=== PATIENT | female | born 1960 | race Caucasian/White ===

== ENCOUNTER 2017-10-26 13:47 | Emergency (ER) | payer BC, OTHER ==
[2017-10-26 13:52] VITALS: BP 142/69; BMI 32.1
[2017-10-26] MEDS ORDERED: TORADOL 60 MG VIAL ONE (13:58)
[2017-10-26] MEDS ORDERED: TORADOL 60 MG VIAL IM ONE (14:07)
--- NOTE | 2017-10-26 14:28 | DR.EXTPAIN ---
HPI - Time seen Time seen: 15:00 - PCP Primary Care Physician: MYA MYERS - Complaint/Symptoms Chief Complaint Doctor Comments: Patient states that she was leaving a furniture store on yesterday; there was a step off that she did not see; twisted her left ankle and heard a "pop". Chief Complaint:: TWISTED LEFT ANKLE Self Treatment fo Chief Complaint: PUT ON A BOOT - Source History Provided: Patient - Mode of arrival Mode of Arrival: Ambulatory - Timing Onset of Chief Complaint: 10/26/17 PMH - PMH Past Medical History: Yes Past Medical History: Hypertension Past Surgical History: Yes Past Surgical History Comment: LASIKS, CATARACT OU - Family History History of Family Medical Conditions: Yes Family Medical History: Diabetes Mellitus, Cancer, [place], Hypertension - Social History Does any household member use tobacco: No Alcohol Use: None Do you use any recreational Drugs:: No Lives With: Spouse Lives Where: Home - infectious screening In the last 2 months have you had wt loss of >10#?: NO Have you had fever, night sweats or hemotysis?: No Have you traveled outside the country in the last 6 months?: No Isolation: Standard ROS - Review of Systems Eyes: No Symptoms Reported ENTM: No Symptoms Reported Respiratoy: No Symptoms Reported Cardiovascular: No Symptoms Reported Gastrointestinal/Abdominal: No Symptoms Reported Genitourinary: No Symptoms Reported Neurological: No Symptoms Reported Musculoskeletal: No Symptoms Reported Integumentary: No Symptoms Reported Hematologic/Lymphatic: No Symptoms Reported Endocrine: No Symptoms Reported Psychiatric: No Symptoms Reported All Other Systems: Reviewed and Negative PE - Vital Signs Vitals: Temperature 98.3 F Pulse Rate 86 Respiratory Rate 20 Blood Pressure 142/69 O2 Sat by Pulse Oximetry 97 - General Limitations: No Limitations General Appearance: Alert, In No Apparent Distress - Head Head Exam: Normal Inspection, Atraumatic - Eyes Eye exam: Normal Appearance, PERRL, EOMI - ENT ENT Exam: Normal Exam - Neck Neck Exam: Normal Inspection, Full ROM - Chest Chest Inspection: Normal Inspection - Respiratory Respiratory Exam: Normal Lung Sounds Bilat, Accessory Muscle Use Respiratory Exam: Bilateral Clear to Auscultation - Cardiovascular Cardiovascular Exam: Regular Rate, Normal Rhythm - Abdominal Exam Abdominal Exam: Normal Inspection, Normal Bowel Sounds Abdominal Tenderness: negative: RUQ, RLQ, LUQ, LLQ, Epigastrium, Suprapubic, Diffuse, Mild, Moderate, Severe, Other - Extremities Extremities Exam: Normal Inspection, Full ROM - Upper Extremities Shoulder Exam: Normal Inspection Arm Exam: Normal Inspection Elbow Exam: Normal Inspection Forearm Exam: Normal Inspection, Full ROM Hand Exam: Normal Inspection Neuromotor Exam: Normal Exam Neurosensory Exam: Normal Exam Hand Tendon Exam: Flexor Digitorium Profundus (Location) - Lower Extremities Hip/Pelvis Exam: Normal Inspection Upper Leg Exam: Normal Inspection Knee Exam: Normal Inspection Lower Leg Exam: Normal Inspection Ankle Exam: Tenderness (left ankle) Foot/Toe Exam: Normal Inspection Neurovascular/Tendon Exam: Normal Capillary Refill Gait Exam: Observed & Limited by Pain - Back Back Exam: Normal Inspection - Neurological Neurological Exam: Alert, Oriented X3, CN II-XII Intact - Psychiatric Psychiatric Exam: Normal Affect, Normal Mood - Skin Skin Exam: Warm, Dry, Intact Distribution: Generalized - Discharge Plan Condition: Stable - Follow ups/Referrals Follow ups/Referrals: AMOS MYERS [Primary Care Provider] - 3 days - Instructions
--- NOTE | 2017-10-26 15:14 | RAD ---
HISTORY: Twisted left ankle Study: Three views left ankle Comparison: None Findings: There is a transverse nondisplaced fracture of the lateral malleolus below the level of the syndesmos is. The ankle mortise appears intact. There is prominent soft tissue swelling overlying the fracture. The talar dome appears intact. IMPRESSION: 1. Transverse nondisplaced fracture of the lateral malleolus. Reported By:
--- NOTE | 2017-10-26 16:00 | DR.EXTPAIN ---
HPI - Time seen Time seen: 15:00 - PCP Primary Care Physician: MYA MYERS - Complaint/Symptoms Chief Complaint Doctor Comments: Patient states that she twisted her left ankle when leaving the store; there was a step-off and she did not see it. She states that she heard a "pop". Chief Complaint:: TWISTED LEFT ANKLE Self Treatment fo Chief Complaint: PUT ON A BOOT - Source History Provided: Patient - Mode of arrival Mode of Arrival: Ambulatory - Timing Onset of Chief Complaint: 10/26/17 PMH - PMH Past Medical History: Yes Past Medical History: Hypertension Past Surgical History: Yes Past Surgical History Comment: LASIKS, CATARACT OU - Family History History of Family Medical Conditions: Yes Family Medical History: Diabetes Mellitus, Cancer, [place], Hypertension - Social History Does any household member use tobacco: No Alcohol Use: None Do you use any recreational Drugs:: No Lives With: Spouse Lives Where: Home - infectious screening In the last 2 months have you had wt loss of >10#?: NO Have you had fever, night sweats or hemotysis?: No Have you traveled outside the country in the last 6 months?: No Isolation: Standard ROS - Review of Systems Constitutional: Diaphoresis ENTM: No Symptoms Reported Respiratoy: No Symptoms Reported Cardiovascular: No Symptoms Reported Gastrointestinal/Abdominal: No Symptoms Reported Genitourinary: No Symptoms Reported Neurological: No Symptoms Reported Musculoskeletal: Ankle (left ankle pain) Integumentary: No Symptoms Reported Hematologic/Lymphatic: No Symptoms Reported Endocrine: No Symptoms Reported Psychiatric: No Symptoms Reported All Other Systems: Reviewed and Negative PE - Vital Signs Vitals: Temperature 98.3 F Pulse Rate 86 Respiratory Rate 20 Blood Pressure 142/69 O2 Sat by Pulse Oximetry 97 - General General Appearance: Alert, In No Apparent Distress - Head Head Exam: Normal Inspection, Atraumatic - Eyes Eye exam: Normal Appearance, PERRL, EOMI - ENT ENT Exam: Normal Exam, Normal Oropharynx - Neck Neck Exam: Normal Inspection - Chest Chest Inspection: Normal Inspection - Respiratory Respiratory Exam: Normal Lung Sounds Bilat Respiratory Exam: Bilateral Clear to Auscultation - Cardiovascular Cardiovascular Exam: Regular Rate, Normal Rhythm - Abdominal Exam Abdominal Exam: Normal Inspection, Normal Bowel Sounds Abdominal Tenderness: negative: RUQ, RLQ, LUQ, LLQ, Epigastrium, Suprapubic, Diffuse, Mild, Moderate, Severe, Other - Extremities Extremities Exam: Normal Inspection, Full ROM - Upper Extremities Shoulder Exam: Normal Inspection, Full ROM Arm Exam: Normal Inspection, Full ROM Elbow Exam: Normal Inspection Forearm Exam: Normal Inspection Hand Exam: Normal Inspection Neuromotor Exam: Normal Exam Neurosensory Exam: Normal Exam Hand Tendon Exam: Flexor Digitorium Profundus (Location) Upper Ext. Vascular Exam: Capillary Refill - Lower Extremities Hip/Pelvis Exam: Tenderness (left ankle) Upper Leg Exam: Normal Inspection Knee Exam: Normal Inspection Lower Leg Exam: Normal Inspection Ankle Exam: Tenderness (lateral malleolus of left ankle) Foot/Toe Exam: Normal Inspection Neurovascular/Tendon Exam: Normal Capillary Refill Gait Exam: Observed and Normal - Back Back Exam: Normal Inspection - Neurological Neurological Exam: Alert, Oriented X3, CN II-XII Intact - Psychiatric Psychiatric Exam: Normal Affect - Skin Skin Exam: Warm, Dry Type of Lesion: Rash Course - Treatment Treatment: Patient has boot - Education/Counseling Educated On: Treatment, Diagnosis, Needs for Follow Up ROR - XRAY XRAY Interpreted by: Radiologist (X Ray Left ankle: A transverse nondisplaced fracture of the lateral malleolus.) - Diagnosis Discharge Problem: non displaced transverse ankle fract - Discharge Plan Condition: Stable - Follow ups/Referrals Follow ups/Referrals: AMOS MYERS [Primary Care Provider] - 3 days - Instructions
== END 2017-10-26 16:16 | disposition home or self-care (01) ==
LOC: ER 13:47
DX: S82.65XA Nondisplaced fracture of lateral malleolus of left fibula, initial encounter for closed fracture (principal); Y33.XXXA Other specified events, undetermined intent, initial encounter; Y92.512 Supermarket, store or market as the place of occurrence of the external cause
CPT/HCPCS: 73610; 96372; 99282; J1885

== ENCOUNTER → 2017-11-21 | Outpatient (CLI) | payer BC, OTHER ==
[2017-10-26 13:52] VITALS: BP 142/69
--- NOTE | 2017-11-26 17:31 | MG ---
HISTORY: SCREENING Comparison: Multiple priors dating back to July 25, 2009 FINDINGS: Bilateral CC and MLO projections of the right and left breast were obtained. Scattered fibroglandula r tissue is seen to be present without suspicious interval change. No significant architectural dist ortion, mass or clustered microcalcifications can be observed to suggest malignancy. No skin thicken ing or nipple retraction is appreciated. No pathological lymphadenopathy can be identified. IMPRESSION: NO RADIOGRAPHIC EVIDENCE OF MALIGNANCY. ACR CATEGORY I - NEGATIVE EXAM. FOLLOW-UP EXAM 1 YEAR. Diagnostic CAD was utilized and reviewed. * 0 (ZERO) - ASSESSMENT INCOMPLETE; ADDITIONAL IMAGING IS NEEDED. * / (ONE) - NEGATIVE. * 2/II (TWO) - BENIGN FINDINGS. * 3/III (THREE) - PROBABLY BENIGN FINDING; SHORT INTERVAL FOLLOW-UP SUGGESTED. * 4/IV (FOUR) - SUSPICIOUS ABNORMALITY; BIOPSY SHOULD BE CONSIDERED. * 5/V - HIGHLY SUSPICIOUS OF MALIGNANCY; BIOPSY SHOULD BE PERFORMED. A NEGATIVE X-RAY REPORT SHOULD NOT DELAY BIOPSY IF A DOMINANT OR CLINICALLY SUSPICIOUS MASS IS PRESENT; 4 TO 8 PERCENT OF CANCERS ARE NOT IDENTIFIED BY X-RAY. A NEGA TIVE REPORT MAY REINFORCE THE CLINICAL IMPRESSION. ADENOSIS AND DENSE BREASTS MAY OBSCURE AN UNDERLY ING NEOPLASM. Reported By:
== END ==
LOC: RAD 13:23
PROVIDERS: ATTEND Obstetrics & Gynecology
DX: Z12.31 Encounter for screening mammogram for malignant neoplasm of breast (principal)
CPT/HCPCS: 77067

== ENCOUNTER 2018-11-18 08:58 | Inpatient (IN) ==
[2018-11-18 09:11] VITALS: BMI 36.6
[2018-11-18 10:22] LABS: BASOPHILS # (AUTO) 0.1 X10^3/uL (0.0-0.1); BASOPHILS % (AUTO) 0.8 % (0.2-1.0); EOSINOPHILS # (AUTO) 0.1 x10^3/uL (0.0-0.2); EOSINOPHILS % (AUTO) 1.1 % (0.9-2.9); HEMATOCRIT 42.7 % (36.0-47.0); HEMOGLOBIN 14.1 g/dL (12.0-16.0); LYMPHOCYTES # (AUTO) 1.7 X10^3/uL (1.3-2.9); LYMPHOCYTES % (AUTO) 21.1 % (21.0-51.0); MEAN CORPUSCULAR HEMOGLOBIN 30.5 pg (27.0-34.0); MEAN CORPUSCULAR HGB CONC 33.1 g/dL (33.0-35.0); MEAN CORPUSCULAR VOLUME 91.9 fL (80.0-100.0); MEAN PLATELET VOLUME 9.3 fL (7.4-11.0); MONOCYTES % (AUTO) 12.6 % (0.0-13.0); NEUTROPHILS # (AUTO) 5.3 x10^3/uL (2.2-4.8); NEUTROPHILS % (AUTO) 64.4 % (42.0-75.0); PLATELET COUNT 350 X10^3/uL (150.0-450.0); RED BLOOD COUNT 4.64 X10^6/uL (3.5-5.4); RED CELL DISTRIBUTION WIDTH 15.7 % (11.6-16.5); WHITE BLOOD COUNT 8.2 X10^3/uL (3.6-10.0)
[2018-11-18 10:35] LABS: BLOOD UREA NITROGEN 12 mg/dL (7-18); CALCIUM 9.2 mg/dL (8.5-10.1); CARBON DIOXIDE 35.5 mmol/L (21-32); CHLORIDE 105 mmol/L (98-107); CREATININE 0.56 mg/dL (0.55-1.02); SODIUM 145 mmol/L (136-145); TROPONIN I 0.03 ng/mL (0-1.5); eGFR NON BLACK RACES > 60 (>60)
--- NOTE | 2018-11-18 10:36 | DR.SOBA ---
HPI Time Seen Time Seen by Provider: 11/18/18 10:10 Primary Care Physician Primary Care Physician: lala carney HPI Comment HPI Comment: PATIENT HAVE COUGH, SOB AND CHEST PAIN FOR 2 WEEKS. DEVELOP COLD AND IS NOT GETTING BETTER. DENIES FEVER. PATIENT SAID IT FEEL LIKE HER LUNGS ARE CLOSE UP Complaints Chief Complaint Doctors Comments: INCREASING SOB TIMES 2 WEEKS. Chief Complaint:: patient stated she has been short of breath for 2 weeks and keeps getting worse. she has a history of blood clots in her lungs Source History Provided: Patient Mode of Arrival Mode of Arrival: Ambulatory Timing Onset of Chief Complaint: 11/04/18 Context Onset:: With Light Exertion PE Risk Factors:: None History of:: None Currently on:: Neither Prehospital Care:: None Modifying Factors Worsens:: Exertion Improves:: Rest Associated Signs and Symptoms Associated Signs and Symptoms: None If Cough Cough: None PMH PMH Past Medical History: Yes Past Medical History: Hypertension Past Surgical History: Yes Past Surgical History Comment: eye Family History History of Family Medical Conditions: Yes Family Medical History: Diabetes Mellitus, Cancer, [place] and Hypertension Social History Does patient currently use any type of tobacco product: No Have you used tobacco products in the last 12 months: No Type of Tobacco Use: None Does any household member use tobacco: No Alcohol Use: None Do you use any recreational Drugs:: No Lives With: Family Lives Where: Home infectious screening In the last 2 months have you had wt loss of >10#?: NO Have you had fever, night sweats or hemotysis?: No Have you traveled outside the country in the last 6 months?: No Isolation: Standard ROS Review of Systems Constitutional: No Symptoms Reported Eyes: No Symptoms Reported ENTM: No Symptoms Reported Respiratoy: Short of Breath Cardiovascular: No Symptoms Reported Gastrointestinal/Abdominal: No Symptoms Reported Genitourinary: No Symptoms Reported Neurological: No Symptoms Reported Musculoskeletal: No Symptoms Reported Integumentary: No Symptoms Reported Hematologic/Lymphatic: No Symptoms Reported Endocrine: No Symptoms Reported Psychiatric: No Symptoms Reported All Other Systems: Reviewed and Negative PE Vital Signs Vitals: Temperature 98.3 F Pulse Rate [Left] 108 Pulse Rate 81 Respiratory Rate 20 Blood Pressure [Right Arm] 118/74 Blood Pressure [Left Arm] 130/60 Blood Pressure 138/95 O2 Sat by Pulse Oximetry 97 General Limitations: No Limitations General Appearance: Alert and In Distress Head Head Exam: Normal Inspection Eyes Eye exam: Normal Appearance ENT ENT Exam: Normal Exam Neck Neck Exam: Normal Inspection Chest Chest Inspection: Normal Inspection Respiratory Respiratory Exam: Normal Lung Sounds Bilat Respiratory Exam: Bilateral: Clear to Auscultation Cardiovascular Cardiovascular Exam: Regular Rate and Normal Rhythm Abdominal Exam Abdominal Exam: Normal Inspection, Normal Bowel Sounds and Soft Extremities Extremities Exam: Normal Inspection Back Back Exam: Normal Inspection Neurologic Neurological Exam: Alert and Oriented X3 Psychiatric Psychiatric Exam: Normal Affect and Normal Mood Skin Skin Exam: Warm, Dry, Intact and Normal Color MDM Differential Diagnosis Differential Diagnosis: Bronchitis, Mycardial Infarction, Pneumonia, Pneumothorax and Pulmonary embolism COURSE Treatment Treatment: SEE ORDERS. Education/Counseling Education/Counseling: Patient Educated On: Diagnosis ROR Labs Reviewed Laboratory Results Reviewed?: Yes Result Diagrams: 11/21/18 05:35 11/21/18 05:35 Laboratory: 11/18/18 15:27 Blood Blood Culture - Final 11/18/18 15:20 Blood Blood Culture - Final 11/18/18 15:47 Sputum - Expectorated Sputum Sputum Culture - Final Pseudomonas Aeruginosa 11/18/18 15:47 Sputum - Expectorated Sputum - Final WBC 19.5 X10^3/uL (3.6-10.0) H 11/21/18 05:35 RBC 4.27 X10^6/uL (3.5-5.4) 11/21/18 05:35 Hgb 13.0 g/dL (12.0-16.0) 11/21/18 05:35 Hct 39.5 % (36.0-47.0) 11/21/18 05:35 MCV 92.6 fL (80.0-100.0) 11/21/18 05:35 MCH 30.5 pg (27.0-34.0) 11/21/18 05:35 MCHC 33.0 g/dL (33.0-35.0) 11/21/18 05:35 RDW 16.3 % (11.6-16.5) 11/21/18 05:35 Plt Count 361 X10^3/uL (150.0-450.0) 11/21/18 05:35 Plt Count Comment Adequate (ADEQUATE) 11/20/18 04:47 MPV 9.3 fL (7.4-11.0) 11/21/18 05:35 Neut % (Auto) 85.6 % (42.0-75.0) H 11/21/18 05:35 Lymph % (Auto) 8.3 % (21.0-51.0) L 11/21/18 05:35 Addison % (Auto) 5.9 % (0.0-13.0) 11/21/18 05:35 Eos % (Auto) 0.0 % (0.9-2.9) L 11/21/18 05:35 Baso % (Auto) 0.2 % (0.2-1.0) 11/21/18 05:35 Neut # (Auto) 16.7 x10^3/uL (2.2-4.8) H 11/21/18 05:35 Lymph # (Auto) 1.6 X10^3/uL (1.3-2.9) 11/21/18 05:35 Addison # (Auto) 1.2 x10^3/uL (0.3-0.8) H 11/21/18 05:35 Eos # (Auto) 0.0 x10^3/uL (0.0-0.2) 11/21/18 05:35 Baso # (Auto) 0.0 X10^3/uL (0.0-0.1) 11/21/18 05:35 Absolute Nucleated RBC 0.0 /100WBC 11/21/18 05:35 Total Counted 100 11/20/18 04:47 Neutrophils % (Manual) 95 % (39-76) H 11/20/18 04:47 Lymphocytes % (Manual) 4 % (13-43) L 11/20/18 04:47 Monocytes % (Manual) 1 % (4-9) L 11/20/18 04:47 Plt Morphology Comment Normal (NORMAL) 11/20/18 04:47 RBC Morphology Normal (NORMAL) 11/20/18 04:47 D-Dimer < 100 ng/mL (0-400) 11/18/18 09:28 Sample Site Rb 11/20/18 05:38 ABG pH 7.480 (7.35-7.45) H 11/20/18 05:38 ABG pCO2 38.0 mmHg (35.0-45.0) 11/20/18 05:38 ABG pO2 69.0 mmHg (80.0-100.0) L 11/20/18 05:38 ABG HCO3 28.3 mmol/L (22-26) H 11/20/18 05:38 ABG O2 Saturation 95.0 % (90-100) 11/20/18 05:38 ABG Base Excess 4.6 mmol/L (-2.0-2.0) H 11/20/18 05:38 Chaz Test Na 11/20/18 05:38 A-a Gradient 33.0 mmHg 11/20/18 05:38 FiO2 21.0 11/20/18 05:38 Blood Gas Comments Nita abg well-mtf 11/20/18 05:38 Sodium 144 mmol/L (136-145) 11/21/18 05:35 Corrected Sodium TNP 11/21/18 05:35 Potassium 3.8 mmol/L (3.5-5.1) 11/21/18 05:35 Chloride 106 mmol/L (98-107) 11/21/18 05:35 Carbon Dioxide 28.2 mmol/L (21-32) 11/21/18 05:35 BUN 14 mg/dL (7-18) 11/21/18 05:35 Creatinine 0.62 mg/dL (0.55-1.02) 11/21/18 05:35 Est GFR (MDRD) Af Amer > 60 (>60) 11/21/18 05:35 Est GFR (MDRD) Non-Af > 60 (>60) 11/21/18 05:35 Glucose 109 mg/dL (65-99) H 11/21/18 05:35 Calcium 8.8 mg/dL (8.5-10.1) 11/21/18 05:35 Corrected Calcium 9.4 mg/dL (8.5-10.1) 11/21/18 05:35 Magnesium 1.8 mg/dL (1.7-2.9) 11/20/18 04:47 Total Bilirubin 0.20 mg/dL (0.2-1.0) 11/21/18 05:35 AST 23 Units/L (15-37) 11/21/18 05:35 ALT 37 Units/L (12-78) 11/21/18 05:35 Alkaline Phosphatase 83 Units/L (46-116) 11/21/18 05:35 Creatine Kinase 64 Units/L (26-192) 11/19/18 04:28 CK-MB (CK-2) 1.4 ng/mL (0-4.0) 11/19/18 04:28 CK/CKMB % Calc 2.2 % (<4) 11/19/18 04:28 Troponin I 0.03 ng/mL (0-1.5) 11/19/18 04:28 Total Protein 6.6 g/dL (6.4-8.2) 11/21/18 05:35 Albumin 3.2 g/dL (3.4-5.0) L 11/21/18 05:35 Globulin 3.4 g/dL (2.5-4.5) 11/21/18 05:35 Albumin/Globulin Ratio 0.9 Ratio (1.1-2.1) L 11/21/18 05:35 Specimen Type Clean catch urine 11/18/18 14:42 Urine Color Yellow (YELLOW) 11/18/18 14:42 Urine Appearance Slightly hazy (CLEAR) 11/18/18 14:42 Urine pH 8.0 (5.0 - 8.0) 11/18/18 14:42 Ur Specific [place] 1.015 (1.000-1.030) 11/18/18 14:42 Urine Protein Negative (NEGATIVE) 11/18/18 14:42 Urine Glucose (UA) Negative (NEGATIVE) 11/18/18 14:42 Urine Ketones Negative (NEGATIVE) 11/18/18 14:42 Urine Occult Blood Negative (NEGATIVE) 11/18/18 14:42 Urine Nitrite Negative (NEGATIVE) 11/18/18 14:42 Urine Bilirubin Negative (NEGATIVE) 11/18/18 14:42 Urine Urobilinogen Normal (NORMAL) 11/18/18 14:42 Ur Leukocyte Esterase 1+ (NEGATIVE) 11/18/18 14:42 Urine RBC 0-2 /HPF (NONE SEEN) 11/18/18 14:42 Urine WBC 3-5 /HPF (NONE SEEN) 11/18/18 14:42 Ur Squamous Epith Cells Few /HPF (NEGATIVE) 11/18/18 14:42 Ur Renal Epithelial Cell Rare /HPF (NEGATIVE) 11/18/18 14:42 Urine Bacteria Trace /HPF (NEGATIVE) 11/18/18 14:42 Ur Culture Indicated? No/not indicated 11/18/18 14:42 XRAY XRAY Interpreted by: Radiologist XRAY Findings: REPORT DISCUSS WITH PATIENT. Instructions Instructions: Shortness of Breath, Adult, [id number] Cough, Adult, [id number] Pursed Lip Breathing Deep Vein Thrombosis Hypertension Community-Acquired Pneumonia, Adult, [id number] Forms: Excuse From Work Patient Portal
[2018-11-18 10:40] LABS: ALANINE AMINOTRANSFERASE 44 Units/L (12-78); ALBUMIN 3.7 g/dL (3.4-5.0); ALKALINE PHOSPHATASE 104 Units/L (46-116); ASPARTATE AMINO TRANSFERASE 31 Units/L (15-37); CREATINE KINASE 112 Units/L (26-192); CREATINE KINASE MB 2.2 ng/mL (0-4.0); TOTAL PROTEIN 7.6 g/dL (6.4-8.2)
[2018-11-18] MEDS ORDERED: K-LYTE EFFERVESCENT ONE (11:22)
[2018-11-18 11:25] LABS: ABG BASE EXCESS 9.8 mmol/L (-2.0-2.0)
[2018-11-18 11:26] LABS: ABG ALLEN TEST P; ABG HCO3 35.4 mmol/L (22-26)
--- NOTE | 2018-11-18 12:02 | RAD ---
HISTORY: Short of breath for 2 weeks and getting worse history of blood clots in her lungs. Study: Two-view chest Comparison: Two-view chest 06/23/2018 Technique: PA and lateral chest Findings: There is moderate scoliosis concave to the left in the upper thoracic spine. No acute osseous lesions are observed. The heart size and configuration airway and vascularity are normal the lungs are clear. When compared to the prior film of 06/23/2018 is no interval change. IMPRESSION: 1. Marked scoliosis concave to the left in the upper thoracic spine stable 2. No acute cardiopulmonary abnormalities and no change from the recent prior film 06/23/2018. Reported By:
[2018-11-18 14:46] LABS: BILIRUBIN,URINE NEGATIVE (NEGATIVE); BLOOD/HEMOGLOBIN,URINE NEGATIVE (NEGATIVE); GLUCOSE, URINE NEGATIVE (NEGATIVE); KETONES,URINE NEGATIVE (NEGATIVE); LEUKOCYTE ESTERASE ,URINE 1+ (NEGATIVE); NITRITES,URINE NEGATIVE (NEGATIVE); PROTEIN,URINE NEGATIVE (NEGATIVE); UROBILINOGEN,URINE NORMAL (NORMAL)
[2018-11-18 14:53] LABS: APPEARANCE,URINE SLIGHTLY HAZY (CLEAR); COLOR,URINE YELLOW (YELLOW)
[2018-11-18 14:54] LABS: BACTERIA,URINE TRACE /HPF (NEGATIVE); RBC,URINE 0-2 /HPF (NONE SEEN); RENAL EPITHELIAL CELLS,URINE RARE /HPF (NEGATIVE); SQUAMOUS EPITHELIAL CELL,UR FEW /HPF (NEGATIVE)
--- NOTE | 2018-11-18 15:01 | CT ---
STUDY: CTA CHEST WITH CONTRAST History: Short of breath for 2 weeks. History of blood clots in her lungs. Comparison: Prior CTA chest from June 24, 2018. Technique: Multiple axial images of the chest were obtained from the thoracic inlet to the upper abdomen after the administration of IV contrast. Image acquisition was optimized for evaluation of pulmonary arterial system. 3D, coronal and sagittal reformatted images were performed and reviewed. Automated exposure control (AEC) was utilized to adjust the MA and/or kV. Findings: There is no evidence of abnormal filling defect in the main pulmonary arteries and their major branches to indicate presence of acute pulmonary thromboembolic disease. Previously described filling defects in the pulmonary arteries bilaterally are no longer present. There is no evidence of aortic aneurysm or dissection. There is no significant pericardial effusion. Is Several shotty lymph nodes, likely reactive, are noted in the mediastinum. No pathologically enlarged lymph nodes are identified. Patchy ground-glass opacities are identified in both upper lobes and both lower lobes. There is no evidence of consolidation significant effusion or pneumothorax. The visualized solid visceral organs in the upper abdomen are otherwise unremarkable. IMPRESSION: 1. No evidence of acute pulmonary thromboembolic disease. Interval resolution of previously noted filling defects pulmonary artery branches bilaterally. 2. Ground-glass opacities throughout both upper lobes and both lower lobes. These findings may be seen with infectious processes, usually opportunistic, chronic interstitial disease, or acute alveolar disease such is cardiogenic or noncardiogenic pulmonary edema. Clinical correlation is recommended. Reported By:
[2018-11-18] MEDS ORDERED: ROCEPHIN VIAL 1 GRAM IVP ONE (15:12)
[2018-11-18] MEDS ORDERED: ROCEPHIN VIAL 1 GRAM ONE (15:14)
[2018-11-18] MEDS ORDERED: SALINE 0.9% 3 ML NEB TX ONE (15:34)
[2018-11-18] MEDS ORDERED: SALINE 3% 15 ML NEB TX NEB ONE (15:40)
[2018-11-18] MEDS ORDERED: TUSSIONEX PENNKINETIC SUSP PO PRN (16:42)
[2018-11-18] MEDS ORDERED: NS 250 ML IV 250 ML IV PRN (16:59)
[2018-11-18] MEDS ORDERED: NS 250 ML IV 250 ML IV ONE (17:03)
[2018-11-18] MEDS ORDERED: LEVAQUIN PREMIX IV 750 MG 750 MG/150 ML BAG IV ONE (17:04)
[2018-11-18] MEDS ORDERED: ROBITUSSIN DM ONE (17:05)
[2018-11-18] MEDS: LEVAQUIN PREMIX IV 750 MG 750 MG/150 ML BAG IV SCH (17:06)
[2018-11-18] MEDS: ROBITUSSIN DM PO SCH ×2 (17:07→21:10)
[2018-11-18] MEDS: DUONEB 0.5 MG/3 MG NEB SCH ×2 (17:41→20:25)
[2018-11-18] MEDS: VIBRAMYCIN 100 MG in D5W 250 ML IV 250 ML IV SCH (21:13)
[2018-11-18] MEDS ORDERED: ULTRAM PO PRN (22:46)
[2018-11-18] MEDS: MICRO K EXTEN CAP 10 MEQ PO SCH (23:00)
[2018-11-18] MEDS: ELIQUIS PO SCH (23:30)
[2018-11-18 23:36] LABS: CKMB % 1.8 % (<4); CREATINE KINASE MB 1.2 ng/mL (0-4.0); TROPONIN I 0.02 ng/mL (0-1.5)
[2018-11-19] MEDS: DUONEB 0.5 MG/3 MG NEB SCH ×6 (01:14→20:27)
[2018-11-19 05:15] LABS: BASOPHILS % (AUTO) 0.5 % (0.2-1.0); EOSINOPHILS % (AUTO) 0.2 % (0.9-2.9); HEMATOCRIT 38.3 % (36.0-47.0); HEMOGLOBIN 12.5 g/dL (12.0-16.0); LYMPHOCYTES # (AUTO) 1.2 X10^3/uL (1.3-2.9); LYMPHOCYTES % (AUTO) 14.9 % (21.0-51.0); MEAN CORPUSCULAR HEMOGLOBIN 30.4 pg (27.0-34.0); MEAN CORPUSCULAR HGB CONC 32.7 g/dL (33.0-35.0); MEAN CORPUSCULAR VOLUME 93.2 fL (80.0-100.0); MEAN PLATELET VOLUME 9.1 fL (7.4-11.0); NEUTROPHILS # (AUTO) 6.1 x10^3/uL (2.2-4.8); NEUTROPHILS % (AUTO) 72.4 % (42.0-75.0); PLATELET COUNT 299 X10^3/uL (150.0-450.0); RED BLOOD COUNT 4.12 X10^6/uL (3.5-5.4); RED CELL DISTRIBUTION WIDTH 15.6 % (11.6-16.5); WHITE BLOOD COUNT 8.4 X10^3/uL (3.6-10.0)
[2018-11-19] MEDS: NEURONTIN CAP 100 MG PO SCH ×3 (05:30→21:16)
[2018-11-19] MEDS: MICRO K EXTEN CAP 10 MEQ PO SCH ×3 (05:30→21:16)
[2018-11-19 05:38] LABS: ALANINE AMINOTRANSFERASE 36 Units/L (12-78); ALBUMIN 3.1 g/dL (3.4-5.0); ALKALINE PHOSPHATASE 83 Units/L (46-116); ASPARTATE AMINO TRANSFERASE 23 Units/L (15-37); BLOOD UREA NITROGEN 10 mg/dL (7-18); CALCIUM 8.8 mg/dL (8.5-10.1); CARBON DIOXIDE 31.2 mmol/L (21-32); CHLORIDE 103 mmol/L (98-107); CKMB % 2.2 % (<4); COR CA(FOR HYPOALB) 9.5 mg/dL (8.5-10.1); COR NA(FOR HYPERGLY) 144 mmol/L (136-145); CREATINE KINASE 64 Units/L (26-192); CREATINE KINASE MB 1.4 ng/mL (0-4.0); CREATININE 0.59 mg/dL (0.55-1.02); MAGNESIUM 1.8 mg/dL (1.7-2.9); SODIUM 144 mmol/L (136-145); TOTAL PROTEIN 6.5 g/dL (6.4-8.2); TROPONIN I 0.03 ng/mL (0-1.5); eGFR NON BLACK RACES > 60 (>60)
[2018-11-19] MEDS ORDERED: POTASSIUM CHL 40 MEQ/NS 0.45% 500 ML IV PRN (06:08)
[2018-11-19] MEDS ORDERED: KLOR-CON PO PRN (06:08)
[2018-11-19] MEDS ORDERED: K-RIDER 10 MEQ/NS 100 ML 10 MEQ/100 ML BAG IV PRN (06:08)
[2018-11-19] MEDS ORDERED: MICRO K EXTEN CAP 10 MEQ PO PRN (06:08)
[2018-11-19] MEDS ORDERED: POTASSIUM CHLORIDE LIQ 20 MEQ UDC PO PRN (06:08)
[2018-11-19] MEDS ORDERED: K-DUR TAB 20 MEQ PO PRN (06:08)
[2018-11-19] MEDS ORDERED: POTASSIUM CHL 60 MEQ/NS 0.45% 500 ML IV PRN (06:08)
[2018-11-19] MEDS ORDERED: MAGNESIUM SULFATE 1 GRAM/100 mL PREMIX 1 GM/100 ML BAG IV PRN (06:15)
[2018-11-19] MEDS ORDERED: K-DUR TAB 20 MEQ PO ONE (06:29)
[2018-11-19] MEDS ORDERED: MAGNESIUM SULFATE 1 GRAM/100 mL PREMIX 1 G/100 ML BAG IV ONE (06:29)
[2018-11-19] MEDS: CARDIZEM CD 240 MG PO SCH (08:38)
[2018-11-19] MEDS: ELIQUIS PO SCH ×2 (08:38→21:16)
[2018-11-19] MEDS: ROBITUSSIN DM PO SCH ×4 (08:39→21:15)
[2018-11-19] MEDS: LEVAQUIN PREMIX IV 750 MG 750 MG/150 ML BAG IV SCH (08:39)
[2018-11-19] MEDS: PriLOSEC PO SCH (08:39)
[2018-11-19] MEDS: HYDROCHLOROTHIAZIDE 25 MG TAB PO SCH (08:39)
[2018-11-19] MEDS: VIBRAMYCIN 100 MG in D5W 250 ML IV 250 ML IV SCH ×2 (08:39→21:16)
[2018-11-19] MEDS ORDERED: SOLU-Medrol 40 MG VIAL ONE (09:55)
[2018-11-19] MEDS: SOLU-Medrol 125 MG VIAL IVP SCH ×3 (10:10→21:16)
[2018-11-19] MEDS ORDERED: K-LYTE EFFERVESCENT PO ONE (11:17)
--- NOTE | 2018-11-19 11:17 | VAS ---
Exam: Bilateral lower extremity venous ultrasound History: 58-year-old female with history of deep vein thrombosis involving the left lower extremity. This was documented on previous ultrasound from 06/26/2018. Comparison: Previous bilateral lower extremity venous ultrasound from 06/26/2018 Findings: Ultrasound evaluation of the deep venous system of both legs was performed from the level of the inguinal ligament down to the calf. On the right, the deep system is widely patent with good flow and compressibility noted throughout its course. On the left, partial, residual thrombosis is present in the mid left superficial femoral vein. However this represents a significant improvement since the previous exam when the entire left deep venous system was involved. On today's study, remainder of the deep venous system of the left leg is patent. Impression: 1. No deep vein thrombosis is identified in the right lower extremity. 2. Partial, residual thrombosis is seen in the mid left superficial femoral vein. However this represents a significant improvement when compared to the previous medius ultrasound from 06/26/2018. Reported By:
--- NOTE | 2018-11-19 18:07 | DR.H&P ---
H&P - History & Physical for Day of: H&P Date: 11/18/18 - Chief Complaint Chief Complaint: SOB, COUGH, WHEEZING - History of Present Illness History of Present Illness: 58 WF ER ADMISSION WITH CO CCC AND SOB WORSE TODAY, BUT PT HAS HAD CO COLD WITH COUGH FOR 2 WEEKS AND MUCH WORSE NOW. 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 PT WAS PMH OF HTN, OA. PT CTA OF CHEST REVEALING BIALTERAL PNEUMONIA. PT ABG WITH PO2 OF 57, K+ 3.2. PT ADMITTED FOR TREATMENT OF SOB WITH HYPOXIA AND PNEUMONIA. - Past Medical History Past Medical History: Hypertension Additional Medical History: DVT/PE - Family History Family Medical History: Diabetes Mellitus, Cancer, [place], Hypertension - Social History Does patient currently use any type of tobacco product: No Have you used tobacco products in the last 12 months: No Type of Tobacco Use: None Does any household member use tobacco: No Alcohol Use: None Drug Use: None - Medications Home Medications: No Known Drug Allergies Allergy (Verified 11/18/18 09:05) CONTINUE taking the following medications apixaban [Eliquis] 5 mg PO BID 11/18/18 [History] desloratadine 5 mg PO DAILY 11/18/18 [History] diltiazem HCl 240 mg PO DAILY 11/18/18 [History] gabapentin 100 mg PO TID 11/18/18 [History] hydrochlorothiazide 25 mg PO BID 11/18/18 [History] ibandronate 150 mg PO DAILY 11/18/18 [History] omeprazole 40 mg PO DAILY 11/18/18 [History] potassium chloride 10 meq PO TID 11/18/18 [History] tramadol 50 mg PO PRN PRN 11/18/18 [History] - Review of Systems Constitutional: Chills, Weakness, Malaise Eyes: No Symptoms Reported ENT: No Symptoms Reported Respiratory: Cough, Shortness of Breath, SOB with Excertion, Wheezing Cardiovascular: Chest Pain, Palpitations, Edema Gastrointestinal: No Symptoms Reported Genitourinary: No Symptoms Reported Musculoskeletal: No Symptoms Reported Skin: No Symptoms Reported Neurological: No Symptoms Reported - Physical Exam Vital Signs: Temperature 98.2 F Pulse Rate [Left] 103 Pulse Rate 96 Respiratory Rate 20 Blood Pressure [Left Arm] 130/60 Blood Pressure 138/95 O2 Sat by Pulse Oximetry 97 Oriented: Normal, Person Ear: Normal Nose: Normal Throat: Dry Respiratory: RLL Diminished, LLL Diminished Cardiovascular: Normal, Murmur, Edema (+1 LLE EDEMA, TRACE RLE) : Normal Auscultation: Bowel Sounds: Normal Palpation: Normal Tenderness: Normal Skin: Normal Musculoskeletal: Left, Leg, Tender Psychiatric: Anxiety Affect: Anxious Speech Pattern: Clear, Appropriate - Assessment/Plan (1) SOB (shortness of breath) Status: Acute Plan: ADMIT, SERIAL CE, CTA ON ADMISSION IN ER. ABG DONE ON ADMISSION IN ER. CONTINUE PO ELIQUIS. AM LABS, CBC CMP. SUPPLEMENTAL O2. SPUTUM CUTLURE, IV ATBX THERAPY JET NEBS. VERIFY HOME MEDICATION (2) Hypoxia Status: Acute (3) Pneumonia Status: Acute (4) DVT (deep venous thrombosis) Status: Acute (5) intermediate current use of anticoagulant Status: Acute - Allergies Allergies/Adverse Reactions: Allergies Allergy/AdvReac Type Severity Reaction Status Date / Time No Known Drug Allergies Allergy Verified 11/18/18 09:05
--- NOTE | 2018-11-19 18:12 | PCM.PROG ---
Progress Note - Progress Note for Day of Date of Exam: 11/19/18 - Subjective Subjective: 58 WF ADMITTED ON 11/18 FROM ER WITH BILATERAL PNEUMONIA WITH SOB AND HYPOXIA. PT CURRENTLY ON IV ATBX WITH CUTLURES PENDING. PT HAS CO LLE EDEMA WITH HX OF DVT AND CO HX OF MURMUR AND "IRREGULAR HEARTBEAT". PT HAD BILATERAL EXP WHEEZING, NON PRODUCTIVE COUGH THIS AM. ADDED IV SOLU MEDROL, ECHO AND LOWER EXTREMITY US. - Past Medical Family Social History Past Med/Fam/Surg Hx: No changes since H&P Allergies: Allergies No Known Drug Allergies Allergy (Verified 11/18/18 09:05) - Review of Systems ROS: No change since H&P - Vital Signs and I&O's Vital Signs: Temperature 98.2 F Pulse Rate [Left] 103 Pulse Rate 96 Respiratory Rate 20 Blood Pressure [Left Arm] 130/60 Blood Pressure 138/95 O2 Sat by Pulse Oximetry 97 Intake and Output: Intake & Output 11/17/18 11/18/18 11/19/18 11/20/18 11:59 11:59 11:59 11:59 Intake Total 540 / 540 1770 / 1770 Balance 540 / 540 1770 / 1770 - Physical Exam Oriented: Normal, Person Ear: Normal Nose: Normal Throat: Dry Respiratory: Diminished, Wheezes Cardiovascular: Normal, Murmur, Edema (+1 LLE EDEMA, TRACE RLE) : Normal Auscultation: Bowel Sounds: Normal Tenderness: Normal Skin: Normal Musculoskeletal: Left, Leg, Tender Psychiatric: Anxiety Affect: Anxious Speech Pattern: Clear, Appropriate - Laboratory and Diagnostics Result Diagrams: 11/19/18 04:28 11/19/18 04:28 Labs: 11/18/18 15:47 Sputum - Expectorated Sputum Sputum Culture - Preliminary 11/18/18 15:47 Sputum - Expectorated Sputum - Final Laboratory WBC 8.4 X10^3/uL (3.6-10.0) 11/19/18 04:28 RBC 4.12 X10^6/uL (3.5-5.4) 11/19/18 04:28 Hgb 12.5 g/dL (12.0-16.0) 11/19/18 04:28 Hct 38.3 % (36.0-47.0) 11/19/18 04:28 MCV 93.2 fL (80.0-100.0) 11/19/18 04:28 MCH 30.4 pg (27.0-34.0) 11/19/18 04:28 MCHC 32.7 g/dL (33.0-35.0) L 11/19/18 04:28 RDW 15.6 % (11.6-16.5) 11/19/18 04:28 Plt Count 299 X10^3/uL (150.0-450.0) 11/19/18 04:28 MPV 9.1 fL (7.4-11.0) 11/19/18 04:28 Neut % (Auto) 72.4 % (42.0-75.0) 11/19/18 04:28 Lymph % (Auto) 14.9 % (21.0-51.0) L 11/19/18 04:28 [place] % (Auto) 12.0 % (0.0-13.0) 11/19/18 04:28 Eos % (Auto) 0.2 % (0.9-2.9) L 11/19/18 04:28 Baso % (Auto) 0.5 % (0.2-1.0) 11/19/18 04:28 Neut # (Auto) 6.1 x10^3/uL (2.2-4.8) H 11/19/18 04:28 Lymph # (Auto) 1.2 X10^3/uL (1.3-2.9) L 11/19/18 04:28 [place] # (Auto) 1.0 x10^3/uL (0.3-0.8) H 11/19/18 04:28 Eos # (Auto) 0.0 x10^3/uL (0.0-0.2) 11/19/18 04:28 Baso # (Auto) 0.0 X10^3/uL (0.0-0.1) 11/19/18 04:28 Absolute Nucleated RBC 0.0 /100WBC 11/19/18 04:28 D-Dimer < 100 ng/mL (0-400) 11/18/18 09:28 Sample Site Rr 11/18/18 11:12 ABG pH 7.450 (7.35-7.45) 11/18/18 11:12 ABG pCO2 51.0 mmHg (35.0-45.0) H* 11/18/18 11:12 ABG pO2 57.0 mmHg (80.0-100.0) L 11/18/18 11:12 ABG HCO3 35.4 mmol/L (22-26) H* 11/18/18 11:12 ABG O2 Saturation 91.0 % (90-100) 11/18/18 11:12 ABG Base Excess 9.8 mmol/L (-2.0-2.0) H 11/18/18 11:12 Chaz Test P 11/18/18 11:12 A-a Gradient 29.0 mmHg 11/18/18 11:12 FiO2 21.0 11/18/18 11:12 Blood Gas Comments Nita well-sd 11/18/18 11:12 Sodium 144 mmol/L (136-145) 11/19/18 04:28 Corrected Sodium 144 mmol/L (136-145) 11/19/18 04:28 Potassium 3.3 mmol/L (3.5-5.1) L 11/19/18 04:28 Chloride 103 mmol/L (98-107) 11/19/18 04:28 Carbon Dioxide 31.2 mmol/L (21-32) 11/19/18 04:28 BUN 10 mg/dL (7-18) 11/19/18 04:28 Creatinine 0.59 mg/dL (0.55-1.02) 11/19/18 04:28 Est GFR (MDRD) Af Amer > 60 (>60) 11/19/18 04:28 Est GFR (MDRD) Non-Af > 60 (>60) 11/19/18 04:28 Glucose 116 mg/dL (65-99) H 11/19/18 04:28 Calcium 8.8 mg/dL (8.5-10.1) 11/19/18 04:28 Corrected Calcium 9.5 mg/dL (8.5-10.1) 11/19/18 04:28 Magnesium 1.8 mg/dL (1.7-2.9) 11/19/18 04:28 Total Bilirubin 0.20 mg/dL (0.2-1.0) 11/19/18 04:28 AST 23 Units/L (15-37) 11/19/18 04:28 ALT 36 Units/L (12-78) 11/19/18 04:28 Alkaline Phosphatase 83 Units/L (46-116) 11/19/18 04:28 Creatine Kinase 64 Units/L (26-192) 11/19/18 04:28 CK-MB (CK-2) 1.4 ng/mL (0-4.0) 11/19/18 04:28 CK/CKMB % Calc 2.2 % (<4) 11/19/18 04:28 Troponin I 0.03 ng/mL (0-1.5) 11/19/18 04:28 Total Protein 6.5 g/dL (6.4-8.2) 11/19/18 04:28 Albumin 3.1 g/dL (3.4-5.0) L 11/19/18 04:28 Globulin 3.4 g/dL (2.5-4.5) 11/19/18 04:28 Albumin/Globulin Ratio 0.9 Ratio (1.1-2.1) L 11/19/18 04:28 Specimen Type Clean catch urine 11/18/18 14:42 Urine Color Yellow (YELLOW) 11/18/18 14:42 Urine Appearance Slightly hazy (CLEAR) 11/18/18 14:42 Urine pH 8.0 (5.0 - 8.0) 11/18/18 14:42 Ur Specific [place] 1.015 (1.000-1.030) 11/18/18 14:42 Urine Protein Negative (NEGATIVE) 11/18/18 14:42 Urine Glucose (UA) Negative (NEGATIVE) 11/18/18 14:42 Urine Ketones Negative (NEGATIVE) 11/18/18 14:42 Urine Occult Blood Negative (NEGATIVE) 11/18/18 14:42 Urine Nitrite Negative (NEGATIVE) 11/18/18 14:42 Urine Bilirubin Negative (NEGATIVE) 11/18/18 14:42 Urine Urobilinogen Normal (NORMAL) 11/18/18 14:42 Ur Leukocyte Esterase 1+ (NEGATIVE) 11/18/18 14:42 Urine RBC 0-2 /HPF (NONE SEEN) 11/18/18 14:42 Urine WBC 3-5 /HPF (NONE SEEN) 11/18/18 14:42 Ur Squamous Epith Cells Few /HPF (NEGATIVE) 11/18/18 14:42 Ur Renal Epithelial Cell Rare /HPF (NEGATIVE) 11/18/18 14:42 Urine Bacteria Trace /HPF (NEGATIVE) 11/18/18 14:42 Ur Culture Indicated? No/not indicated 11/18/18 14:42 - Plan (1) SOB (shortness of breath) Status: Acute Plan: SERIAL CE, CTA ON ADMISSION IN ER. ABG DONE ON ADMISSION IN ER WILL REPEAT AM ABG. CONTINUE PO ELIQUIS. AM LABS, CBC CMP. SUPPLEMENTAL O2. 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
[2018-11-20] MEDS: DUONEB 0.5 MG/3 MG NEB SCH ×6 (01:01→20:30)
[2018-11-20 05:36] LABS: BASOPHILS % (AUTO) 0.2 % (0.2-1.0); HEMATOCRIT 38.2 % (36.0-47.0); HEMOGLOBIN 12.5 g/dL (12.0-16.0); LYMPHOCYTES # (AUTO) 0.6 X10^3/uL (1.3-2.9); LYMPHOCYTES % (AUTO) 4.1 % (21.0-51.0); MEAN CORPUSCULAR HEMOGLOBIN 30.5 pg (27.0-34.0); MEAN CORPUSCULAR HGB CONC 32.7 g/dL (33.0-35.0); MEAN CORPUSCULAR VOLUME 93.5 fL (80.0-100.0); MEAN PLATELET VOLUME 9.4 fL (7.4-11.0); MONOCYTES # (AUTO) 0.2 x10^3/uL (0.3-0.8); MONOCYTES % (AUTO) 1.5 % (0.0-13.0); NEUTROPHILS # (AUTO) 14.3 x10^3/uL (2.2-4.8); NEUTROPHILS % (AUTO) 94.2 % (42.0-75.0); PLATELET COUNT 300 X10^3/uL (150.0-450.0); RED BLOOD COUNT 4.09 X10^6/uL (3.5-5.4); RED CELL DISTRIBUTION WIDTH 15.9 % (11.6-16.5); WHITE BLOOD COUNT 15.1 X10^3/uL (3.6-10.0)
[2018-11-20 05:50] LABS: PLATELET MORPHOLOGY COMMENT NORMAL (NORMAL)
[2018-11-20 05:53] LABS: ALANINE AMINOTRANSFERASE 34 Units/L (12-78); ALKALINE PHOSPHATASE 86 Units/L (46-116); ASPARTATE AMINO TRANSFERASE 17 Units/L (15-37); BLOOD UREA NITROGEN 11 mg/dL (7-18); CALCIUM 8.6 mg/dL (8.5-10.1); CARBON DIOXIDE 27.3 mmol/L (21-32); CHLORIDE 106 mmol/L (98-107); COR CA(FOR HYPOALB) 9.4 mg/dL (8.5-10.1); COR NA(FOR HYPERGLY) 148 mmol/L (136-145); CREATININE 0.66 mg/dL (0.55-1.02); MAGNESIUM 1.8 mg/dL (1.7-2.9); SODIUM 144 mmol/L (136-145); TOTAL PROTEIN 6.4 g/dL (6.4-8.2); eGFR NON BLACK RACES > 60 (>60)
[2018-11-20 05:54] LABS: ABG BASE EXCESS 4.6 mmol/L (-2.0-2.0); ABG HCO3 28.3 mmol/L (22-26)
[2018-11-20] MEDS: MICRO K EXTEN CAP 10 MEQ PO SCH ×3 (05:57→21:09)
[2018-11-20] MEDS: NEURONTIN CAP 100 MG PO SCH ×3 (05:57→21:09)
--- NOTE | 2018-11-20 07:02 | RAD ---
HISTORY: Right calf pain and swelling Study: Chest AP Comparison: 11/18/2018 Findings: Heart is within normal limits in size. The koko are normal. The lungs are free of acute alveolar infiltrates. Mild bibasilar interstitial lung changes are present. No pleural effusions are identified. The bony thorax is unremarkable with the exception of thoracic dextroscoliosis. IMPRESSION: No acute alveolar infiltrates Mild bibasilar interstitial lung changes Reported By:
[2018-11-20] MEDS: ELIQUIS PO SCH ×2 (08:33→21:09)
[2018-11-20] MEDS: HYDROCHLOROTHIAZIDE 25 MG TAB PO SCH (08:33)
[2018-11-20] MEDS: CARDIZEM CD 240 MG PO SCH (08:33)
[2018-11-20] MEDS: VIBRAMYCIN 100 MG in D5W 250 ML IV 250 ML IV SCH ×2 (08:33→21:08)
[2018-11-20] MEDS: LEVAQUIN PREMIX IV 750 MG 750 MG/150 ML BAG IV SCH (08:34)
[2018-11-20] MEDS: ROBITUSSIN DM PO SCH ×4 (08:34→21:09)
[2018-11-20] MEDS: PriLOSEC PO SCH (08:34)
--- NOTE | 2018-11-20 12:39 | PCM.PROG ---
Progress Note - Progress Note for Day of Date of Exam: 11/20/18 - Subjective Subjective: 58 WF ADMITTED ON 11/18 FROM ER WITH BILATERAL PNEUMONIA WITH SOB AND HYPOXIA. PT CURRENTLY ON IV ATBX WITH +PSEUDOMONAS PT HAS CO LLE EDEMA WITH HX OF DVT AND CO HX OF MURMUR AND "IRREGULAR HEARTBEAT". US LLE WITH IMPROVING DVT, ECHO WITH NORMAL EF. PT HAD BILATERAL EXP WHEEZING, NON PRODUCTIVE COUGH THIS AM. PT STATES IS FEELING BETTER - Past Medical Family Social History Past Med/Fam/Surg Hx: No changes since H&P Allergies: Allergies No Known Drug Allergies Allergy (Verified 11/18/18 09:05) - Review of Systems ROS: No change since H&P - Vital Signs and I&O's Vital Signs: Temperature 98.2 F Pulse Rate [Left] 95 Pulse Rate 101 Respiratory Rate 20 Blood Pressure [Right Arm] 129/66 Blood Pressure [Left Arm] 130/60 Blood Pressure 138/95 O2 Sat by Pulse Oximetry 99 Intake and Output: Intake & Output 11/18/18 11/19/18 11/20/18 11/21/18 11:59 11:59 11:59 11:59 Intake Total 540 / 540 2059 Balance 540 / 540 2059 - Physical Exam Oriented: Normal, Person Ear: Normal Nose: Normal Throat: Dry Respiratory: Diminished, Wheezes Cardiovascular: Normal, Murmur, Edema (+1 LLE EDEMA, TRACE RLE) : Normal Auscultation: Bowel Sounds: Normal Tenderness: Normal Skin: Normal Musculoskeletal: Left, Leg, Tender Psychiatric: Anxiety Affect: Anxious Speech Pattern: Clear, Appropriate - Laboratory and Diagnostics Result Diagrams: 11/20/18 04:47 11/20/18 04:47 Labs: 11/18/18 15:27 Blood Blood Culture - Preliminary 11/18/18 15:20 Blood Blood Culture - Preliminary 11/18/18 15:47 Sputum - Expectorated Sputum Sputum Culture - Final Pseudomonas Aeruginosa 11/18/18 15:47 Sputum - Expectorated Sputum - Final Laboratory WBC 15.1 X10^3/uL (3.6-10.0) H 11/20/18 04:47 RBC 4.09 X10^6/uL (3.5-5.4) 11/20/18 04:47 Hgb 12.5 g/dL (12.0-16.0) 11/20/18 04:47 Hct 38.2 % (36.0-47.0) 11/20/18 04:47 MCV 93.5 fL (80.0-100.0) 11/20/18 04:47 MCH 30.5 pg (27.0-34.0) 11/20/18 04:47 MCHC 32.7 g/dL (33.0-35.0) L 11/20/18 04:47 RDW 15.9 % (11.6-16.5) 11/20/18 04:47 Plt Count 300 X10^3/uL (150.0-450.0) 11/20/18 04:47 Plt Count Comment Adequate (ADEQUATE) 11/20/18 04:47 MPV 9.4 fL (7.4-11.0) 11/20/18 04:47 Neut % (Auto) 94.2 % (42.0-75.0) H 11/20/18 04:47 Lymph % (Auto) 4.1 % (21.0-51.0) L 11/20/18 04:47 [place] % (Auto) 1.5 % (0.0-13.0) 11/20/18 04:47 Eos % (Auto) 0.0 % (0.9-2.9) L 11/20/18 04:47 Baso % (Auto) 0.2 % (0.2-1.0) 11/20/18 04:47 Neut # (Auto) 14.3 x10^3/uL (2.2-4.8) H 11/20/18 04:47 Lymph # (Auto) 0.6 X10^3/uL (1.3-2.9) L 11/20/18 04:47 [place] # (Auto) 0.2 x10^3/uL (0.3-0.8) L 11/20/18 04:47 Eos # (Auto) 0.0 x10^3/uL (0.0-0.2) 11/20/18 04:47 Baso # (Auto) 0.0 X10^3/uL (0.0-0.1) 11/20/18 04:47 Absolute Nucleated RBC 0.0 /100WBC 11/20/18 04:47 Total Counted 100 11/20/18 04:47 Neutrophils % (Manual) 95 % (39-76) H 11/20/18 04:47 Lymphocytes % (Manual) 4 % (13-43) L 11/20/18 04:47 Monocytes % (Manual) 1 % (4-9) L 11/20/18 04:47 Plt Morphology Comment Normal (NORMAL) 11/20/18 04:47 RBC Morphology Normal (NORMAL) 11/20/18 04:47 D-Dimer < 100 ng/mL (0-400) 11/18/18 09:28 Sample Site [facility] 11/20/18 05:38 ABG pH 7.480 (7.35-7.45) H 11/20/18 05:38 ABG pCO2 38.0 mmHg (35.0-45.0) 11/20/18 05:38 ABG pO2 69.0 mmHg (80.0-100.0) L 11/20/18 05:38 ABG HCO3 28.3 mmol/L (22-26) H 11/20/18 05:38 ABG O2 Saturation 95.0 % (90-100) 11/20/18 05:38 ABG Base Excess 4.6 mmol/L (-2.0-2.0) H 11/20/18 05:38 Chaz Test Na 11/20/18 05:38 A-a Gradient 33.0 mmHg 11/20/18 05:38 FiO2 21.0 11/20/18 05:38 Blood Gas Comments Nita abg well-mtf 11/20/18 05:38 Sodium 144 mmol/L (136-145) 11/20/18 04:47 Corrected Sodium 148 mmol/L (136-145) H 11/20/18 04:47 Potassium 3.7 mmol/L (3.5-5.1) 11/20/18 04:47 Chloride 106 mmol/L (98-107) 11/20/18 04:47 Carbon Dioxide 27.3 mmol/L (21-32) 11/20/18 04:47 BUN 11 mg/dL (7-18) 11/20/18 04:47 Creatinine 0.66 mg/dL (0.55-1.02) 11/20/18 04:47 Est GFR (MDRD) Af Amer > 60 (>60) 11/20/18 04:47 Est GFR (MDRD) Non-Af > 60 (>60) 11/20/18 04:47 Glucose 259 mg/dL (65-99) H 11/20/18 04:47 Calcium 8.6 mg/dL (8.5-10.1) 11/20/18 04:47 Corrected Calcium 9.4 mg/dL (8.5-10.1) 11/20/18 04:47 Magnesium 1.8 mg/dL (1.7-2.9) 11/20/18 04:47 Total Bilirubin 0.20 mg/dL (0.2-1.0) 11/20/18 04:47 AST 17 Units/L (15-37) 11/20/18 04:47 ALT 34 Units/L (12-78) 11/20/18 04:47 Alkaline Phosphatase 86 Units/L (46-116) 11/20/18 04:47 Creatine Kinase 64 Units/L (26-192) 11/19/18 04:28 CK-MB (CK-2) 1.4 ng/mL (0-4.0) 11/19/18 04:28 CK/CKMB % Calc 2.2 % (<4) 11/19/18 04:28 Troponin I 0.03 ng/mL (0-1.5) 11/19/18 04:28 Total Protein 6.4 g/dL (6.4-8.2) 11/20/18 04:47 Albumin 3.0 g/dL (3.4-5.0) L 11/20/18 04:47 Globulin 3.4 g/dL (2.5-4.5) 11/20/18 04:47 Albumin/Globulin Ratio 0.9 Ratio (1.1-2.1) L 11/20/18 04:47 Specimen Type Clean catch urine 11/18/18 14:42 Urine Color Yellow (YELLOW) 11/18/18 14:42 Urine Appearance Slightly hazy (CLEAR) 11/18/18 14:42 Urine pH 8.0 (5.0 - 8.0) 11/18/18 14:42 Ur Specific [place] 1.015 (1.000-1.030) 11/18/18 14:42 Urine Protein Negative (NEGATIVE) 11/18/18 14:42 Urine Glucose (UA) Negative (NEGATIVE) 11/18/18 14:42 Urine Ketones Negative (NEGATIVE) 11/18/18 14:42 Urine Occult Blood Negative (NEGATIVE) 11/18/18 14:42 Urine Nitrite Negative (NEGATIVE) 11/18/18 14:42 Urine Bilirubin Negative (NEGATIVE) 11/18/18 14:42 Urine Urobilinogen Normal (NORMAL) 11/18/18 14:42 Ur Leukocyte Esterase 1+ (NEGATIVE) 11/18/18 14:42 Urine RBC 0-2 /HPF (NONE SEEN) 11/18/18 14:42 Urine WBC 3-5 /HPF (NONE SEEN) 11/18/18 14:42 Ur Squamous Epith Cells Few /HPF (NEGATIVE) 11/18/18 14:42 Ur Renal Epithelial Cell Rare /HPF (NEGATIVE) 11/18/18 14:42 Urine Bacteria Trace /HPF (NEGATIVE) 11/18/18 14:42 Ur Culture Indicated? No/not indicated 11/18/18 14:42 - Plan (1) SOB (shortness of breath) Status: Acute Plan: SERIAL CE, CTA ON ADMISSION IN ER. REPEAT AM ABG IMPROVING PO2. CONTINUE PO ELIQUIS. AM LABS, CBC CMP. SUPPLEMENTAL O2. SPUTUM CUTLURE, IV ATBX THERAPY JET NEBS (2) Hypoxia Status: Acute (3) Pneumonia Status: Acute (4) DVT (deep venous thrombosis) Status: Acute (5) jail current use of anticoagulant Status: Acute (6) Murmur Status: Acute Plan: ECHO (7) Lower extremity edema Status: Acute Plan: ECHO, VENOUS US
[2018-11-21] MEDS: DUONEB 0.5 MG/3 MG NEB SCH ×3 (01:49→09:00)
[2018-11-21] MEDS: NEURONTIN CAP 100 MG PO SCH (06:16)
[2018-11-21] MEDS: MICRO K EXTEN CAP 10 MEQ PO SCH (06:16)
[2018-11-21 06:54] LABS: BASOPHILS % (AUTO) 0.2 % (0.2-1.0); HEMATOCRIT 39.5 % (36.0-47.0); LYMPHOCYTES # (AUTO) 1.6 X10^3/uL (1.3-2.9); LYMPHOCYTES % (AUTO) 8.3 % (21.0-51.0); MEAN CORPUSCULAR HEMOGLOBIN 30.5 pg (27.0-34.0); MEAN CORPUSCULAR VOLUME 92.6 fL (80.0-100.0); MEAN PLATELET VOLUME 9.3 fL (7.4-11.0); MONOCYTES # (AUTO) 1.2 x10^3/uL (0.3-0.8); MONOCYTES % (AUTO) 5.9 % (0.0-13.0); NEUTROPHILS # (AUTO) 16.7 x10^3/uL (2.2-4.8); NEUTROPHILS % (AUTO) 85.6 % (42.0-75.0); PLATELET COUNT 361 X10^3/uL (150.0-450.0); RED BLOOD COUNT 4.27 X10^6/uL (3.5-5.4); RED CELL DISTRIBUTION WIDTH 16.3 % (11.6-16.5); WHITE BLOOD COUNT 19.5 X10^3/uL (3.6-10.0)
[2018-11-21 06:59] LABS: ALANINE AMINOTRANSFERASE 37 Units/L (12-78); ALBUMIN 3.2 g/dL (3.4-5.0); ALKALINE PHOSPHATASE 83 Units/L (46-116); ASPARTATE AMINO TRANSFERASE 23 Units/L (15-37); BLOOD UREA NITROGEN 14 mg/dL (7-18); CALCIUM 8.8 mg/dL (8.5-10.1); CARBON DIOXIDE 28.2 mmol/L (21-32); CHLORIDE 106 mmol/L (98-107); COR CA(FOR HYPOALB) 9.4 mg/dL (8.5-10.1); CREATININE 0.62 mg/dL (0.55-1.02); SODIUM 144 mmol/L (136-145); TOTAL PROTEIN 6.6 g/dL (6.4-8.2); eGFR NON BLACK RACES > 60 (>60)
[2018-11-21] MEDS: VIBRAMYCIN 100 MG in D5W 250 ML IV 250 ML IV SCH (09:18)
[2018-11-21] MEDS: LEVAQUIN PREMIX IV 750 MG 750 MG/150 ML BAG IV SCH (09:18)
[2018-11-21] MEDS: CARDIZEM CD 240 MG PO SCH (09:18)
[2018-11-21] MEDS: ROBITUSSIN DM PO SCH (09:18)
[2018-11-21] MEDS: HYDROCHLOROTHIAZIDE 25 MG TAB PO SCH (09:18)
[2018-11-21] MEDS: PriLOSEC PO SCH (09:18)
[2018-11-21] MEDS: ELIQUIS PO SCH (09:18)
--- NOTE | 2018-11-21 12:23 | RAD ---
HISTORY: Shortness of breath, cough Study: Two-view chest Comparison: 11/20/2018. Findings: Trachea is midline. Heart size is normal. Increased interstitial markings are present involving both lungs which are stable compared to prior studies. No consolidation, CHF, pleural fluid or pneumothorax is seen. There is a thoracolumbar scoliosis. There multiple deformities present involving the medial right upper ribs, stable from prior studies. IMPRESSION: No acute cardiopulmonary disease. Reported By:
[2018-11-21 13:29] VITALS: BP 118/74
== END 2018-11-21 01:50 | disposition home or self-care (01) | DRG 178 ==
LOC: MED/SURG 09:04 → ER 09:04 → OBSVTOIN 16:03 → MED/SURG 16:50
PROVIDERS: ADMIT Internal Medicine; ATTEND Internal Medicine
DX: R07.89 Other chest pain; R01.1 Cardiac murmur, unspecified; I10 Essential (primary) hypertension; R09.02 Hypoxemia; Z79.01 Long term (current) use of anticoagulants; R60.0 Localized edema; M19.90 Unspecified osteoarthritis, unspecified site; R06.89 Other abnormalities of breathing; J15.1 Pneumonia due to Pseudomonas; R06.02 Shortness of breath; I82.412 Acute embolism and thrombosis of left femoral vein
CPT/HCPCS: 36415; 36600; 71010; 71020; 71045; 71046; 71275; 80053; 81001; 82550; 82553; 82803; 83735; 84484; 85025; 85378; 87040; 87070; 87077; 87186; 87205; 93005; 93010; 93306; 93970; 94640; 94669; 94760; 96365; 96374; 99282; 99284; A4222; J0696; J1956; J2930; J3475; J3490; J7050; J7060; J7620; J8499